=== PATIENT | female | born 1940 | race Caucasian/White ===

== ENCOUNTER 2017-02-10 23:08 | Emergency (ER) | payer MEDICARE ==
[~2017-02-10] VITALS: Ht 182.9 cm; Wt 91.8 kg
[2017-02-10 23:17] VITALS: BP 116/58; PULSE 66; RESP 18; O2SAT 95
--- NOTE | 2017-02-10 23:23 | ED.REPORT ---
HPI-Abd Pain F 40 and Over Date of Service Feb 10, 2017 ED Provider: Dr. Gerry Bernstein M.D. A 76 year old female with a history of atrial fibrillation and bladder prolapse s/p recent bladder neck suspension and bladder sling surgery (02/10/17) presents to the ED via EMS with worsening LLQ abdominal pain onset this evening. The patient was discharged from the hospital today with a catheter in place after her recent bladder surgery. Her pain is similar to the urge to urinate, but she is not producing urine. Associated symptoms include nausea and vomiting (x3), preceding the pain. The patient denies fever or other symptoms. EMS found the patient with a BP of 132/73 and otherwise normal vital signs. Nursing Notes Stated Complaint: ABDOMINAL PAIN Chief Complaint: Female Abdominal Pain Nursing Notes Reviewed: Yes Allergies: Coded Allergies: No Known Allergies (Unverified , 02/10/17) General Time Seen by MD: 23:23 Chief Complaint Abdominal pain Hx Obtained From: Patient Arrived By: Ambulance Sudden in Onset?: Yes Onset Occurred: 1 - 4 hours ago Context of Onset: After vomiting Symptom Duration: Since onset Progression since Onset: Gradually worsening Location: : LLQ Quality: Painful Severity: Current: Moderate Severity: Maximum: Moderate Associated with: Reports: Nausea, Vomiting Pertinent Negative: Relieved by nothing Context Related History: Reports: Abdominal surgery Recent Healthcare: Recent doctor visit, Recent hospitalization, Previous surgery Past Medical History Past Medical History Atrial fibrillation Bladder prolapse Past Surgical History Hysterectomy Bladder neck suspension Bladder sling Smoking History Former Smoker Social History Other Social History: Good social support Ambulatory Status Independent Review of Systems Constitutional: Denies: Fever Respiratory: Denies: Non-productive cough, Shortness of breath GI: Reports: Abdominal pain (LLQ), Nausea, Vomiting (x3) Complete sys rev & neg: except as marked. Physical Exam Vital Signs Vital Signs (First) Date Time Temp Pulse Resp B/P Pulse Ox O2 Delivery O2 Flow Rate FiO2 02/10/17 23:17 36.7 66 18 116/58 95 Room Air Initial VS: Reviewed Head / Eyes: Atraumatic, Normocephalic ENT: Conjunctiva normal, No scleral icterus Neck: Supple, Full range of motion Skin: Warm, Dry, No cyanosis Neurologic: Alert, Oriented, Nonfocal Psychiatric: Mood/affect normal, Behavior normal, Normal thought content General/Constitutional: Awake, Alert Respiratory / Chest: Breath sounds NL, Breath sounds = bilat, No respiratory distress Cardiovascular: Heart rate NL, Regular rhythm, Heart sounds NL Abdomen: Soft, No distention Tenderness/Guarding/Rebound: Positive: Tender LLQ... (Mild) Interpretation & Diagnostics Lab Results Interpretation Result Diagram: 02/10/17 2315 02/10/17 2315 Test 02/10/17 23:15 02/11/17 00:11 White Blood Count 16.5th/mm3 (3.8-10.1) Red Blood Count 4.40mil/mm3 (3.90-5.20) Hemoglobin 12.0g/dL (12.0-15.6) Hematocrit 37.9% (35.0-46.0) Mean Corpuscular Volume 86.1fL (81-100) Mean Corpuscular Hemoglobin 27.3pg (27.0-35.0) Mean Corpuscular Hemoglobin Concent 31.7% (32.0-37.0) Red Cell Distribution Width 14.5% (12.3-15.4) Platelet Count 250bil/L (150-400) Neutrophils (%) (Auto) 84.0% (40-74) Lymphocytes (%) (Auto) 8.4% (14-46) Monocytes (%) (Auto) 7.2% (4-12) Eosinophils (%) (Auto) 0.1% (0-5) Basophils (%) (Auto) 0.2% (0-3) Hold Purple Top Tube Received (Received) Hold Blue Top Tube Received (Received) Sodium Level 135mEq/L (134-144) Potassium Level 4.9mEq/L (3.5-5.2) Chloride Level 100mEq/L (97-108) Carbon Dioxide Level 19mmol/L (18-29) Blood Urea Nitrogen 25mg/dL (8-27) Creatinine 0.95mg/dL (0.57-1.00) Estimat Glomerular Filtration Rate 82mL/min (>59) Glucose Level 140mg/dL (60-99) Calcium Level 8.7mg/dL (8.5-10.1) Total Bilirubin 0.3mg/dL (0.0-1.2) Aspartate Amino Transf (AST/SGOT) 16U/L (0-50) Alanine Aminotransferase (ALT/SGPT) 15U/L (0-32) Alkaline Phosphatase 67U/L (25-165) Total Protein 6.6g/dL (6.4-8.4) Albumin 4.1g/dL (3.4-5.0) Lipase 40U/L (13-60) Hold [place] Top Tube Received (Received) Urine Color Dark yellow (YELLOW) Urine Appearance Clear (CLEAR,HAZY) Urine pH 6.0 (5.0-8.0) Urine Specific [place] 1.025 (1.003-1.035) Urine Protein 30mg/dL (NEG,TRACE) Urine Glucose (UA) Negativemg/dL (NEGATIVE) Urine Ketones Tracemg/dL (NEGATIVE) Urine Occult Blood Large (NEGATIVE) Urine Nitrite Negative (NEGATIVE) Urine Bilirubin Small (NEGATIVE) Urine Ictotest Positive (Negative) Urine Urobilinogen Normalmg/dL (NORMAL) Urine Leukocyte Esterase Small (NEGATIVE) Urine RBC >50/hpf (0-2) Urine WBC 11-50/hpf (0-5) Urine Epithelial Cells Few/hpf (NONE-MOD) Urine Crystals None seen (NONE SEEN) Urine Bacteria None/hpf (NONE-FEW) Urine Hyaline Casts None/lpf (NONE) Urine Granular Casts None seen (NONE SEEN) Urine Waxy Casts None seen (NONE SEEN) Urine Red Blood Cell Casts None seen (NONE SEEN) Urine White Blood Cell Casts None seen (NONE SEEN) Urine Mucus Present (None Seen) Urine Trichomonas None seen (NONE SEEN) Urine Yeast None (NONE SEEN) Urine Culture Reflexed Indicated Re-Eval/Medical Decision Med Decision/Clinical Course 76-year-old presents after a bladder suspension me of the vaginal route at [facility]. She has a sensation of bladder fullness and spasm but no urine in the bladder by bladder scan. Pace was due to be removed tomorrow and is removed tonight instead. It is unclear whether she will be able to urinate or not, but the source of her pain by description and by exam seems to be irritation of her bladder, perhaps by her Pace balloon. She has no fever and no other indication of other postoperative complication. She is instructed to follow up with her surgeons this morning. Provided with Vicodin, which she had not filled from her prior prescription. Re-Evaluation/Progress #1: Time of Eval: 23:56 Patient Status: Condition improved Re-Evaluation/Progress Note: Discussed with patient plan for catheter removal and medication. Re-Evaluation/Progress #2: Time of Eval: 00:54 Patient Status: Condition improved Re-Evaluation/Progress Note: Patient's pain has improved. Discussed with patient lab results, diagnosis, and plan for discharge. Follow-up and return to the ER instructions given. Patient agrees with plan for care and all questions were addressed. Counseled Regarding: Diagnosis, Lab results, Need for follow-up, When/why to return to ED Discharge & Departure Shift Change Sign-Out Response to Therapy: Improved Primary Impression: Postoperative pain Additional Impression: Bladder spasms Disposition: Home Discharge Condition All VS Reviewed: Yes Condition: Improved Additional Instructions: Percocet if needed for pain. Fill your prescription as directed. Return here if unable to urinate and you feel as though you are developing a full bladder. Return to your operating surgeons as soon as possible. Call them this morning for follow-up visit today. Referrals: Javier Conti (PCP) Shagufta Attestation Portions of this note were transcribed by Areli Rizo. I, Dr. Bernstein, personally performed the history, physical exam, and medical decision-making; I reviewed and confirmed the accuracy of the information in the transcribed note. Signed by: Shagufta Samson, 02/11/2017, 02:15 copies to: Javier Conti Christopher W MD Feb 10, 2017 23:23 ARELI RIZO Feb 10, 2017 23:30
[2017-02-10] MEDS ORDERED: Ondansetron 2 mg/mL 2 mL Inj IVPUSH ONE (23:55)
[2017-02-10] MEDS ORDERED: HYDROmorphone 0.5 mg/0.5 mL iSecure Syringe IVPUSH ONE (23:55)
[2017-02-11] MEDS ORDERED: _oxyCODONE/APAP 5-325 mg Tablet PO PRN
[2017-02-11 00:06] LABS: BASOPHILS % (AUTO) 0.2 % (0-3); EOSINOPHILS % (AUTO) 0.1 % (0-5); MONOCYTES % (AUTO) 7.2 % (4-12); Mean Corpuscular Hemoglobin 27.3 pg (27.0-35.0); Mean Corpuscular Volume 86.1 fL (81-100); Platelet Count 250 bil/L (150-400)
[2017-02-11 00:45] LABS: APPEARANCE,URINE CLEAR (CLEAR,HAZY); COLOR,URINE DARK YELLOW (YELLOW); OCCULT BLOOD,URINE LARGE (NEGATIVE); UROBILINOGEN,URINE NORMAL (NORMAL)
[2017-02-11 00:46] LABS: ICTOTEST,URINE POSITIVE (Negative)
[2017-02-11] MEDS ORDERED: Ondansetron 2 mg/mL 2 mL Inj IVPUSH ONE (00:55)
[2017-02-11] MEDS ORDERED: _Ondansetron ODT 4 mg Tablet PO PRN (00:55)
[2017-02-11 01:25] VITALS: BP 126/48; PULSE 66; RESP 16; O2SAT 95
== END 2017-02-11 01:26 | disposition home or self-care (01) ==
LOC: SED 23:08
DX: G89.18 Other acute postprocedural pain (principal); N32.89 Other specified disorders of bladder; R10.32 Left lower quadrant pain; Z98.890 Other specified postprocedural states; Z87.891 Personal history of nicotine dependence
CPT/HCPCS: 36415; 51798; 80053; 81000; 83690; 85025; 87086; 96374; 96375; 96376; 99285; J1170; J2405